=== PATIENT | female | born 1940 | race Caucasian/White ===

== ENCOUNTER 2017-08-21 06:01 | Day surgery (SDC) | payer OTHER ==
[~2017-08-21 06:01] MED LIST: AMBIEN10 MG; CARVEDILOL6.25 MG; ISOSORBIDE DINI30 MG; LAMICTAL100 MG; MIRTAZAPINE15 MG; OSTERA TABLET1 EACH PO; PERCOCET 10-321 EACH PO; VITB12 PO; ZOCOR40 MG; ZOCOR40 MG PO; [UNRECOGNIZED DRUG - OTHER]
[2017-08-21] MEDS ORDERED: ULTRACET PO (09:56)
== END 2017-08-21 10:20 | disposition home or self-care (01) ==
LOC: CIR.AMB 06:01
DX: C50.111 Malignant neoplasm of central portion of right female breast (principal); C34.12 Malignant neoplasm of upper lobe, left bronchus or lung
CPT/HCPCS: 36561; C1751